=== PATIENT | female | born 1975 | race Caucasian/White ===

== ENCOUNTER 2018-08-20 22:28 | Emergency (ER) | payer BC ==
[~2018-08-20] VITALS: Ht 152.4 cm; Wt 74.0 kg
[2018-08-20] MEDS ORDERED: ketorolac tromethamine 15mg/ml inj. IM ONE (23:05)
[2018-08-20 23:23] VITALS: BP 151/79
== END 2018-08-20 23:26 | disposition home or self-care (01) ==
LOC: ER 22:30
DX: M25.512 Pain in left shoulder (principal); Z88.0 Allergy status to penicillin; Z88.1 Allergy status to other antibiotic agents
CPT/HCPCS: 96372; 99283; J1885

== ENCOUNTER 2018-09-24 22:34 | Emergency (ER) | payer OTHER ==
[2018-09-24 22:47] VITALS: BP 162/96
[2018-09-24] MEDS ORDERED: DOXY100C43 PO (23:04)
== END 2018-09-24 23:18 | disposition home or self-care (01) ==
LOC: ER 22:35
DX: J32.1 Chronic frontal sinusitis (principal); J32.2 Chronic ethmoidal sinusitis; M19.90 Unspecified osteoarthritis, unspecified site; Z79.899 Other long term (current) drug therapy
CPT/HCPCS: 99283

== ENCOUNTER 2018-10-31 06:21 | Emergency (ER) | payer OTHER ==
[~2018-10-31] VITALS: Ht 152.4 cm; Wt 74.0 kg
[2018-10-31 06:57] LABS: BASOPHILS # (AUTO) 0.1 X10'3 (0-0.2); BASOPHILS % (AUTO) 0.6 % (0-1); EOSINOPHILS # (AUTO) 0.2 X10'3 (0-0.9); EOSINOPHILS % (AUTO) 1.5 % (0-6); HEMATOCRIT 39.1 % (35.0-45.0); HEMOGLOBIN 13.4 g/dl (12.0-16.0); LYMPHOCYTES # (AUTO) 1.2 X10'3 (1.1-4.8); LYMPHOCYTES % (AUTO) 8.3 % (21-51); MEAN CORPUSCULAR HEMOGLOBIN 30.3 PG (27.0-31.0); MEAN CORPUSCULAR HGB CONC 34.4 % (33.0-36.5); MEAN CORPUSCULAR VOLUME 88.3 FL (78-98); MEAN PLATELET VOLUME 7.8 FL (7.4-10.4); MONOCYTES # (AUTO) 0.3 X10'3 (0-0.9); MONOCYTES % (AUTO) 2.3 % (2-12); NEUTROPHILS # (AUTO) 13.1 X10'3 (1.8-7.7); NEUTROPHILS % (AUTO) 87.3 % (42-75); PLATELET COUNT 348 X10'3 (140-440); RED BLOOD COUNT 4.43 X10'6 (4.20-5.60); RED CELL DISTRIBUTION WIDTH 13.1 % (11.5-14.5)
[2018-10-31 07:12] LABS: ALANINE AMINOTRANSFERASE 25 U/L (12-78); ALBUMIN 3.7 G/DL (3.4-5.0); ALBUMIN/GLOBULIN RATIO 0.9 (1.1-1.5); ALKALINE PHOSPHATASE 79 IU/L (46-116); ANION GAP 12 (8-16); ASPARTATE AMINO TRANSFERASE 17 U/L (10-37); BILIRUBIN,TOTAL 0.2 MG/DL (0.1-1.0); BLOOD UREA NITROGEN 18 MG/DL (7-18); BUN/CREATININE RATIO 16.2 (6.6-38.0); CALCIUM 8.8 MG/DL (8.5-10.1); CHLORIDE 102 MMOL/L (99-107); CREATININE 1.11 MG/DL (0.40-0.90); GLUCOSE 170 MG/DL (70-104); LIPASE 121 U/L (73-393); POTASSIUM 3.4 MMOL/L (3.5-5.1); SODIUM 138 MMOL/L (135-145); TOTAL CARBON DIOXIDE 24.4 MMOL/L (24-32); TOTAL PROTEIN 7.6 G/DL (6.4-8.2); eGFR 54 ML/MIN
[2018-10-31] MEDS ORDERED: normal saline 1000ML IV soln IVB ONE (07:35)
[2018-10-31] MEDS ORDERED: ondansetron/PF 4mg/2ml inj IV ONE (07:35)
[2018-10-31] MEDS: morphine 4 MG/ML inj SYRINge IV PRN ×2 (08:07→17:13)
[2018-10-31 09:35] LABS: CLARITY,URINE CLEAR (Clear); COLOR,URINE YELLOW (Yellow); GLUCOSE, URINE NEGATIVE (Neg); KETONES,URINE NEGATIVE (Neg); LEUKOCYTE ESTERASE ,URINE NEGATIVE (Neg); NITRITES, URINE NEGATIVE (Neg); OCCULT BLOOD,URINE LARGE (Neg); PROTEIN,URINE NEGATIVE (Neg); UA COLLECTION TYPE CLN CATCH MIDSTREAM; UROBILINOGEN,URINE 0.2 E.U/dL (0.2-1.0)
[2018-10-31 09:36] LABS: URINE HCG NEGATIVE (NEG)
[2018-10-31 09:42] LABS: BACTERIA,URINE NONE SEEN /HPF (Neg); MUCUS STRANDS NONE SEEN /LPF (Neg); RBC,URINE 20-50 /HPF (0-2); SQUAMOUS EPITHELIAL CELL,UR MANY /LPF (FEW); WBC,URINE 0-4 /HPF (0-4)
[2018-10-31] MEDS ORDERED: morphine 4 MG/ML inj SYRINge IV ONE (10:40)
[2018-10-31] MEDS ORDERED: ONDA4TAB6 PO (16:59)
[2018-10-31] MEDS ORDERED: HYDR-3965 PO (16:59)
[2018-10-31] MEDS ORDERED: hydrALAZINE 20mg/ml inj. IV PRN (18:00)
[2018-10-31] MEDS ORDERED: morphine 4 MG/ML inj SYRINge IV PRN ×2 (18:00)
[2018-10-31] MEDS ORDERED: fentaNYL/PF 50MCG/1 ML 2ML syringe IV PRN ×2 (18:00)
[2018-10-31] MEDS ORDERED: ondansetron/PF 4mg/2ml inj IV PRN (18:00)
[2018-10-31] MEDS ORDERED: ringers solution, lacted 1,000 ML IV SCH (18:00)
[2018-10-31] MEDS ORDERED: labetalol 20mg/4ml (5mg/ml) syringe IV PRN (18:00)
[2018-10-31] MEDS ORDERED: iohexol 300 MG/1 ML 50ml polymer ONE (18:08)
[2018-10-31] MEDS ORDERED: fentaNYL/PF 50MCG/1 ML 2ML syringe ONE (18:35)
[2018-10-31] MEDS ORDERED: midazolam 2 mg/2 ml injection ONE (18:36)
[2018-10-31] MEDS ORDERED: ondansetron/PF 4mg/2ml inj ONE (18:36)
[2018-10-31] MEDS ORDERED: LIDOcaine 2% (20mg/ml) 5ml vial ONE (18:36)
[2018-10-31] MEDS ORDERED: propofol inj 20 ML IV ONE (18:36)
[2018-10-31] MEDS ORDERED: ceFAZolin 1000mg inj ONE ×2 (18:42)
[2018-10-31] MEDS ORDERED: dexamethasone sod phosphate 4mg/ml inj. ONE (18:43)
[2018-10-31 19:04] VITALS: BP 120/88
--- NOTE | 2018-10-31 19:04 | NUR ---
Received from OR via , accompanied by Anesthesiologist DR SWARTZ and report given by Anesthesiolgist. AWAKENS TO VOICE. VITALS STABLE. MATEUSZ PAIN. ABD SOFT.
[2018-10-31 19:14] VITALS: BP 111/67
[2018-10-31 19:24] VITALS: BP 114/64
[2018-10-31 19:34] VITALS: BP 124/86
[2018-10-31 19:44] VITALS: BP 128/76
[2018-10-31 19:54] VITALS: BP 132/84
--- NOTE | 2018-10-31 20:04 | NUR ---
AWAKE AND ORIENTED. VITALS STABLE. MATEUSZ PAIN. HOME WITH HER SPOUSE AT THIS TIME.
[2018-11-01] MEDS ORDERED: HYDR-3965 PO (08:10)
[2018-11-01] MEDS ORDERED: ONDA4TAB6 PO ×3 (08:10→08:37)
[2018-11-01] MEDS ORDERED: HYDR-4353 PO (08:32)
[2018-11-01] MEDS ORDERED: OXYC-150 PO (08:37)
== END 2018-10-31 20:04 | disposition home or self-care (01) ==
LOC: ER 06:22 → EEVIPCON 06:22 → ER 20:04
DX: N13.2 Hydronephrosis with renal and ureteral calculous obstruction (principal); K59.00 Constipation, unspecified; M19.90 Unspecified osteoarthritis, unspecified site; Z90.710 Acquired absence of both cervix and uterus; Z98.890 Other specified postprocedural states
CPT/HCPCS: 36415; 52005; 74018; 74176; 76000; 80053; 81001; 81025; 83690; 85025; 85610; 96374; 96375; 96376; 99284; C1758; C2617; J0690; J1100; J2001; J2250; J2270; J2405; J2704; J3010; J7030; Q9967; A4402; J7120

== ENCOUNTER 2018-11-18 07:45 | Emergency (ER) | payer OTHER ==
[2018-11-18] VITALS (8 sets, daily range): BP systolic 114–127; BP diastolic 66–81
[~2018-11-18] VITALS: Ht 152.4 cm; Wt 72.7 kg
[~2018-11-18 07:45] MED LIST: ONDA4TAB6 PO; OXYC-150 PO
[2018-11-18] MEDS ORDERED: normal saline 1000ML IV soln IVB ONE (08:00)
[2018-11-18] MEDS ORDERED: ketorolac trometh. 30mg/ml inj. IV ONE (08:00)
[2018-11-18] MEDS ORDERED: ondansetron/PF 4mg/2ml inj IV ONE (08:00)
[2018-11-18 08:34] LABS: BASOPHILS # (AUTO) 0.1 X10'3 (0-0.2); BASOPHILS % (AUTO) 1.3 % (0-1); EOSINOPHILS # (AUTO) 0.3 X10'3 (0-0.9); EOSINOPHILS % (AUTO) 3.5 % (0-6); HEMATOCRIT 36.9 % (35.0-45.0); HEMOGLOBIN 12.7 g/dl (12.0-16.0); LYMPHOCYTES # (AUTO) 2.9 X10'3 (1.1-4.8); LYMPHOCYTES % (AUTO) 38.8 % (21-51); MEAN CORPUSCULAR HEMOGLOBIN 30.2 PG (27.0-31.0); MEAN CORPUSCULAR HGB CONC 34.3 g/dL (33.0-36.5); MEAN CORPUSCULAR VOLUME 88.1 FL (78-98); MEAN PLATELET VOLUME 7.6 FL (7.4-10.4); MONOCYTES # (AUTO) 0.5 X10'3 (0-0.9); MONOCYTES % (AUTO) 6.6 % (2-12); NEUTROPHILS # (AUTO) 3.7 X10'3 (1.8-7.7); NEUTROPHILS % (AUTO) 49.8 % (42-75); PLATELET COUNT 312 X10'3 (140-440); RED BLOOD COUNT 4.19 X10'6 (4.20-5.60); RED CELL DISTRIBUTION WIDTH 13.3 % (11.5-14.5); WHITE BLOOD COUNT 7.4 X10'3 (4.5-11.0)
[2018-11-18] MEDS: morphine 4 MG/ML inj SYRINge IV PRN ×2 (08:34→12:52)
[2018-11-18 08:43] LABS: URINE HCG NEGATIVE (NEG)
[2018-11-18 08:47] LABS: ALANINE AMINOTRANSFERASE 20 U/L (12-78); ALBUMIN 3.5 G/DL (3.4-5.0); ALKALINE PHOSPHATASE 54 IU/L (46-116); ANION GAP 10 (8-16); ASPARTATE AMINO TRANSFERASE 17 U/L (10-37); BILIRUBIN,TOTAL 0.6 MG/DL (0.1-1.0); BLOOD UREA NITROGEN 8 MG/DL (7-18); CALCIUM 8.9 MG/DL (8.5-10.1); CHLORIDE 102 MMOL/L (99-107); GLUCOSE 98 MG/DL (70-104); LIPASE 88 U/L (73-393); POTASSIUM 3.4 MMOL/L (3.5-5.1); SODIUM 141 MMOL/L (135-145); TOTAL CARBON DIOXIDE 28.7 MMOL/L (24-32); TOTAL PROTEIN 7.1 G/DL (6.4-8.2); eGFR 78 ML/MIN
[2018-11-18 08:48] LABS: CLARITY,URINE SLIGHTLY CLOUDY (Clear); COLOR,URINE YELLOW (Yellow); GLUCOSE, URINE NEGATIVE (Neg); KETONES,URINE NEGATIVE (Neg); LEUKOCYTE ESTERASE ,URINE SMALL (Neg); NITRITES, URINE POSITIVE (Neg); OCCULT BLOOD,URINE LARGE (Neg); PH,URINE 5.5 (4.8-8.0); PROTEIN,URINE 30 mg/dl (Neg); UROBILINOGEN,URINE 0.2 E.U/dL (0.2-1.0)
[2018-11-18 08:55] LABS: UA COLLECTION TYPE CLN CATCH MIDSTREAM
[2018-11-18 08:57] LABS: MUCUS STRANDS FEW /LPF (Neg); SQUAMOUS EPITHELIAL CELL,UR MANY /LPF (FEW)
[2018-11-18 08:58] LABS: BACTERIA,URINE 1+ /HPF (Neg); RBC,URINE 50-100 /HPF (0-2)
[2018-11-18] MEDS ORDERED: normal saline 1000ml 1,000 ML IV ONE (09:25)
[2018-11-18] MEDS ORDERED: morphine 4 MG/ML inj SYRINge IV PRN ×3 (09:25→14:50)
[2018-11-18] MEDS ORDERED: ondansetron/PF 4mg/2ml inj IV PRN ×2 (09:25→14:50)
[2018-11-18] MEDS ORDERED: CETI-102 PO (11:05)
[2018-11-18] MEDS ORDERED: famotidine 20mg tablet PO ONE (11:39)
[2018-11-18] MEDS ORDERED: ringers solution, lacted 1,000 ML IV SCH ×2 (11:39→14:47)
[2018-11-18] MEDS ORDERED: NO HOME MEDS (13:42)
[2018-11-18] MEDS ORDERED: iohexol 300 MG/1 ML 50ml polymer ONE (14:49)
[2018-11-18] MEDS ORDERED: fentaNYL/PF 50MCG/1 ML 2ML syringe IV PRN ×2 (14:50)
[2018-11-18] MEDS ORDERED: hydrALAZINE 20mg/ml inj. IV PRN (14:50)
[2018-11-18] MEDS ORDERED: labetalol 20mg/4ml (5mg/ml) syringe IV PRN (14:50)
[2018-11-18] MEDS ORDERED: meperidine/PF 50mg/ml syringe ONE (15:14)
[2018-11-18] MEDS ORDERED: LIDOcaine 2% (20mg/ml) 5ml vial ONE (15:15)
[2018-11-18] MEDS ORDERED: propofol inj 20 ML IV ONE (15:15)
[2018-11-18] MEDS ORDERED: ondansetron/PF 4mg/2ml inj ONE (15:15)
[2018-11-18] MEDS ORDERED: sevoflurane 250ml liquid IH ONE (15:18)
[2018-11-18] MEDS ORDERED: dexamethasone sod phosphate 10mg/ml inj ONE (15:18)
[2018-11-18] MEDS ORDERED: ceFAZolin 1000mg inj ONE (15:36)
--- NOTE | 2018-11-18 16:30 | NUR ---
Received from OR via , accompanied by Anesthesiologist YULIANA and report given by Anesthesiolgist. PATIENT VSS CHARTED, RESPIRATIONS EQUAL, LUNG SOUNDS CLEAR. STENTS IN PLACE TO PUBIC BONE. WILL CONTINUE TO MONITOR.
--- NOTE | 2018-11-18 17:25 | NUR ---
PATIENT VOIDED, CLEAR WITH NO CLOTS NOTED.
--- NOTE | 2018-11-18 17:30 | NUR ---
PATIENT DISCHARGE INSTRUCTIONS GIVEN, PATIENT VERBALIZED UNDERSTANDING. PIV DC;D, CATH TIP INTACT. PATIENT TO PERSONAL VEHCILE WITH ALL PERSONAL BELONGINGS.
== END 2018-11-18 17:30 | disposition home or self-care (01) ==
LOC: EEVIPCON 07:46 → ER 07:46
DX: N20.0 Calculus of kidney (principal); M19.90 Unspecified osteoarthritis, unspecified site; Z90.710 Acquired absence of both cervix and uterus; Z88.0 Allergy status to penicillin; Z88.1 Allergy status to other antibiotic agents; Z79.899 Other long term (current) drug therapy
CPT/HCPCS: 36415; 52000; 74018; 76000; 80053; 81001; 81025; 83690; 85025; 96374; 96375; 96376; 99285; C2617; J0690; J1100; J1885; J2001; J2175; J2270; J2405; J2704; J7030; Q9967; A4402; A7000; C1769; J7120

== ENCOUNTER → 2018-12-05 | Outpatient (CLI) | payer OTHER ==
[~2018-12-05] MED LIST changes: +NO HOME MEDS; -ONDA4TAB6 PO; -OXYC-150 PO
[2018-12-05 13:20] LABS: BASOPHILS # (AUTO) 0.1 X10'3 (0-0.2); BASOPHILS % (AUTO) 1.4 % (0-1); EOSINOPHILS # (AUTO) 0.1 X10'3 (0-0.9); EOSINOPHILS % (AUTO) 1.3 % (0-6); HEMOGLOBIN 12.6 g/dl (12.0-16.0); LYMPHOCYTES # (AUTO) 2.3 X10'3 (1.1-4.8); LYMPHOCYTES % (AUTO) 40.3 % (21-51); MEAN CORPUSCULAR HEMOGLOBIN 29.9 PG (27.0-31.0); MEAN CORPUSCULAR HGB CONC 33.9 g/dL (33.0-36.5); MEAN CORPUSCULAR VOLUME 88.1 FL (78-98); MEAN PLATELET VOLUME 7.9 FL (7.4-10.4); MONOCYTES # (AUTO) 0.3 X10'3 (0-0.9); MONOCYTES % (AUTO) 5.9 % (2-12); NEUTROPHILS # (AUTO) 2.9 X10'3 (1.8-7.7); NEUTROPHILS % (AUTO) 51.1 % (42-75); PLATELET COUNT 338 X10'3 (140-440); RED CELL DISTRIBUTION WIDTH 13.7 % (11.5-14.5); WHITE BLOOD COUNT 5.7 X10'3 (4.5-11.0)
[2018-12-05 13:47] LABS: HEMOGLOBIN A1C 5.5 % (4.5-6.2)
[2018-12-05 13:56] LABS: ALANINE AMINOTRANSFERASE 21 U/L (12-78); ALBUMIN 3.6 G/DL (3.4-5.0); ALBUMIN/GLOBULIN RATIO 1.1 (1.1-1.5); ALKALINE PHOSPHATASE 63 IU/L (46-116); ANION GAP 5 (8-16); ASPARTATE AMINO TRANSFERASE 15 U/L (10-37); BILIRUBIN,TOTAL 0.4 MG/DL (0.1-1.0); CHLORIDE 105 MMOL/L (99-107); CHOL/HDL RATIO 3.3 (0.00-4.99); CHOLESTEROL 149 MG/DL (0-200); CREATININE 0.84 MG/DL (0.40-0.90); GLUCOSE 92 MG/DL (70-104); HDL CHOLESTEROL 45 MG/DL (35-60); LDL CHOLESTEROL 94 MG/DL (50-100); SODIUM 138 MMOL/L (135-145); TOTAL CARBON DIOXIDE 28.4 MMOL/L (24-32); TRIGLYCERIDES 110 MG/DL (20-135); eGFR 74 ML/MIN
[2018-12-05 14:08] LABS: BLOOD UREA NITROGEN 12 MG/DL (7-18); BUN/CREATININE RATIO 14.3 (6.6-38.0)
[2018-12-05 16:06] LABS: PHOSPHORUS 3.2 MG/DL (2.3-4.5)
== END | disposition home or self-care (01) ==
LOC: LAB 12:20
PROVIDERS: ATTEND Family Medicine
DX: Z12.31 Encounter for screening mammogram for malignant neoplasm of breast (principal); N20.0 Calculus of kidney; Z76.89 Persons encountering health services in other specified circumstances
CPT/HCPCS: 36415; 80053; 80061; 83036; 83735; 84100; 84436; 84443; 85025

== ENCOUNTER 2018-12-15 15:09 | Outpatient (CLI) | payer OTHER ==
[2018-12-15 16:17] LABS: ALANINE AMINOTRANSFERASE 18 U/L (12-78); ALBUMIN 3.5 G/DL (3.4-5.0); ALKALINE PHOSPHATASE 67 IU/L (46-116); ANION GAP 7 (8-16); ASPARTATE AMINO TRANSFERASE 14 U/L (10-37); BILIRUBIN,TOTAL 0.3 MG/DL (0.1-1.0); BLOOD UREA NITROGEN 9 MG/DL (7-18); BUN/CREATININE RATIO 12.3 (6.6-38.0); CALCIUM 9.3 MG/DL (8.5-10.1); CHLORIDE 105 MMOL/L (99-107); CREATININE 0.73 MG/DL (0.40-0.90); GLUCOSE 91 MG/DL (70-104); POTASSIUM 3.3 MMOL/L (3.5-5.1); SODIUM 140 MMOL/L (135-145); TOTAL CARBON DIOXIDE 28.2 MMOL/L (24-32); TOTAL PROTEIN 7.1 G/DL (6.4-8.2); eGFR 87 ML/MIN
== END 2018-12-15 23:59 | disposition home or self-care (01) ==
LOC: LAB 15:09
PROVIDERS: ATTEND Family Medicine
DX: K52.9 Noninfective gastroenteritis and colitis, unspecified (principal); E87.6 Hypokalemia; Z88.0 Allergy status to penicillin; Z88.1 Allergy status to other antibiotic agents
CPT/HCPCS: 80053

== ENCOUNTER 2019-03-18 23:34 | Emergency (ER) | payer OTHER ==
[~2019-03-18] VITALS: Ht 152.4 cm; Wt 72.7 kg
[2019-03-18 23:39] VITALS: BP 136/82
[2019-03-19] MEDS ORDERED: ibuprofen tablet 400 MG TABLET PO ONE (00:35)
== END 2019-03-19 01:15 | disposition home or self-care (01) ==
LOC: ER 23:35
DX: J06.9 Acute upper respiratory infection, unspecified (principal); M19.90 Unspecified osteoarthritis, unspecified site; Z90.49 Acquired absence of other specified parts of digestive tract; Z90.710 Acquired absence of both cervix and uterus; Z98.890 Other specified postprocedural states; Z88.0 Allergy status to penicillin; Z88.1 Allergy status to other antibiotic agents
CPT/HCPCS: 99282

== ENCOUNTER 2019-05-21 17:19 | Emergency (ER) | payer OTHER ==
[~2019-05-21] VITALS: Ht 152.4 cm; Wt 72.0 kg
[~2019-05-21 17:19] MED LIST changes: +CETI10CA PO; -NO HOME MEDS
--- NOTE | 2019-05-21 17:33 | NUR ---
SPOKE WITH PROVIDER JEEVAN HUSSEIN AND UPDATED PROVIDER ON PT REPORT OF [facility] REPORTS SWEATING, UNILATERAL HEAD PAIN AND TEARING OF EYES. PT PLACED ON 5L O2 VIA NC PER PA INSTRUCTION.
[2019-05-21] MEDS ORDERED: proCHLORperazine 10 MG/2 ml inj IV ONE (18:10)
[2019-05-21] MEDS ORDERED: dexamethasone sod phosphate 10mg/ml inj IV STA (18:10)
[2019-05-21] MEDS ORDERED: diphenhydrAMINE 50 mg/ml inj IV ONE (18:10)
[2019-05-21] MEDS ORDERED: normal saline 1000ML IV soln IVB ONE (18:10)
[2019-05-21] MEDS ORDERED: ketorolac tromethamine 15mg/ml inj. IV ONE (18:10)
[2019-05-21 19:00] VITALS: BP 141/86
== END 2019-05-21 19:31 | disposition home or self-care (01) ==
LOC: ER 17:19
DX: G43.909 Migraine, unspecified, not intractable, without status migrainosus (principal); M19.90 Unspecified osteoarthritis, unspecified site; Z90.49 Acquired absence of other specified parts of digestive tract; Z90.710 Acquired absence of both cervix and uterus; Z98.890 Other specified postprocedural states; Z88.0 Allergy status to penicillin; Z88.1 Allergy status to other antibiotic agents; Z79.899 Other long term (current) drug therapy
CPT/HCPCS: 96374; 96375; 99283; J0780; J1100; J1200; J1885; J7030

== ENCOUNTER 2019-08-02 23:26 | Emergency (ER) | payer OTHER ==
[~2019-08-02] VITALS: Ht 152.4 cm; Wt 72.7 kg
[2019-08-02] MEDS ORDERED: ALBU8.5H8 INH (23:41)
[2019-08-02] MEDS ORDERED: BENZ-16 PO (23:41)
[2019-08-03 00:10] VITALS: BP 152/92
== END 2019-08-03 00:13 | disposition home or self-care (01) ==
LOC: ER 23:28
DX: J20.9 Acute bronchitis, unspecified (principal); G43.909 Migraine, unspecified, not intractable, without status migrainosus; M19.90 Unspecified osteoarthritis, unspecified site; Z90.49 Acquired absence of other specified parts of digestive tract; Z90.710 Acquired absence of both cervix and uterus; Z98.890 Other specified postprocedural states; Z88.0 Allergy status to penicillin; Z88.1 Allergy status to other antibiotic agents; Z79.899 Other long term (current) drug therapy
CPT/HCPCS: 71045; 99283

== ENCOUNTER 2019-09-09 14:40 | Emergency (ER) | payer OTHER ==
[~2019-09-09] VITALS: Ht 152.4 cm; Wt 72.7 kg
[~2019-09-09 14:40] MED LIST changes: +ALBU8.5H8 INH
[2019-09-09 14:42] VITALS: BP 138/92
[2019-09-09] MEDS ORDERED: clindamycin 150mg capsule PO ONE (15:15)
[2019-09-09] MEDS ORDERED: CLIN150C2 PO (15:17)
[2019-09-09] MEDS ORDERED: L. R1CAP4 PO (15:18)
== END 2019-09-09 15:32 | disposition home or self-care (01) ==
LOC: ER 14:40
DX: J32.9 Chronic sinusitis, unspecified (principal); G43.909 Migraine, unspecified, not intractable, without status migrainosus; M19.90 Unspecified osteoarthritis, unspecified site; Z90.49 Acquired absence of other specified parts of digestive tract; Z90.710 Acquired absence of both cervix and uterus; Z98.890 Other specified postprocedural states; Z88.0 Allergy status to penicillin; Z88.1 Allergy status to other antibiotic agents; Z79.899 Other long term (current) drug therapy
CPT/HCPCS: 99283

== ENCOUNTER 2019-09-18 17:08 | Emergency (ER) | payer OTHER ==
[~2019-09-18] VITALS: Ht 152.4 cm; Wt 76.0 kg
[~2019-09-18 17:08] MED LIST changes: +L. R1CAP4 PO
[2019-09-18 17:10] VITALS: BP 144/89
[2019-09-18] MEDS ORDERED: ipratropium/albuterol 3ml nebule NEB ONE (18:25)
[2019-09-18] MEDS ORDERED: BENZ-16 PO (18:37)
[2019-09-18] MEDS ORDERED: ATRNS (18:37)
== END 2019-09-18 18:51 | disposition home or self-care (01) ==
LOC: ER 17:08
DX: J20.9 Acute bronchitis, unspecified (principal); M19.90 Unspecified osteoarthritis, unspecified site; Z90.49 Acquired absence of other specified parts of digestive tract; Z90.710 Acquired absence of both cervix and uterus; Z98.890 Other specified postprocedural states; Z88.0 Allergy status to penicillin; Z88.1 Allergy status to other antibiotic agents; Z79.899 Other long term (current) drug therapy
CPT/HCPCS: 94640; 94760; 99283

== ENCOUNTER 2019-11-15 23:25 | Emergency (ER) | payer OTHER ==
[~2019-11-15] VITALS: Ht 152.4 cm; Wt 72.7 kg
[~2019-11-15 23:25] MED LIST changes: +ATRNS
[2019-11-16] MEDS ORDERED: CLOT15CR73 TP (00:19)
[2019-11-16 00:57] VITALS: BP 145/85
== END 2019-11-16 00:58 | disposition home or self-care (01) ==
LOC: ER 23:26
DX: B35.8 Other dermatophytoses (principal); G43.909 Migraine, unspecified, not intractable, without status migrainosus; M19.90 Unspecified osteoarthritis, unspecified site; Z90.49 Acquired absence of other specified parts of digestive tract; Z90.710 Acquired absence of both cervix and uterus; Z88.0 Allergy status to penicillin; Z88.1 Allergy status to other antibiotic agents
CPT/HCPCS: 99283

== ENCOUNTER 2020-02-10 23:24 | Emergency (ER) | payer OTHER ==
[~2020-02-10] VITALS: Ht 152.4 cm; Wt 72.7 kg
[~2020-02-10 23:24] MED LIST changes: +CLOT15CR73 TP
[2020-02-10 23:29] VITALS: BP 158/96
[2020-02-10] MEDS ORDERED: CEPH250T PO (23:36)
== END 2020-02-10 23:46 | disposition home or self-care (01) ==
LOC: ER 23:24
DX: L60.0 Ingrowing nail (principal); L08.89 Other specified local infections of the skin and subcutaneous tissue; G43.909 Migraine, unspecified, not intractable, without status migrainosus; M19.90 Unspecified osteoarthritis, unspecified site; Z90.49 Acquired absence of other specified parts of digestive tract; Z90.710 Acquired absence of both cervix and uterus; Z98.890 Other specified postprocedural states; Z88.0 Allergy status to penicillin; Z79.2 Long term (current) use of antibiotics; Z79.4 Long term (current) use of insulin; Z79.899 Other long term (current) drug therapy
CPT/HCPCS: 99283

== ENCOUNTER 2020-02-13 22:33 | Emergency (ER) | payer OTHER ==
[~2020-02-13] VITALS: Ht 165.1 cm; Wt 75.0 kg
[~2020-02-13 22:33] MED LIST changes: +CEPH250T PO
[2020-02-13 22:49] VITALS: BP 150/103
[2020-02-13] MEDS ORDERED: CLIN150C8 PO (22:53)
[2020-02-13] MEDS ORDERED: clindamycin 150mg capsule PO ONE (22:55)
== END 2020-02-13 23:09 | disposition home or self-care (01) ==
LOC: ER 22:34
DX: L29.9 Pruritus, unspecified (principal); T36.1X5A Adverse effect of cephalosporins and other beta-lactam antibiotics, initial encounter; R51 Headache; M19.90 Unspecified osteoarthritis, unspecified site; Z90.49 Acquired absence of other specified parts of digestive tract; Z90.710 Acquired absence of both cervix and uterus; Z88.1 Allergy status to other antibiotic agents; Z88.0 Allergy status to penicillin; Z79.2 Long term (current) use of antibiotics; Z79.899 Other long term (current) drug therapy; Y92.9 Unspecified place or not applicable
CPT/HCPCS: 99283

== ENCOUNTER 2020-06-13 21:29 | Emergency (ER) | payer OTHER ==
[~2020-06-13] VITALS: Ht 172.7 cm; Wt 72.7 kg
[~2020-06-13 21:29] MED LIST changes: -CEPH250T PO; +CLIN150C8 PO
[2020-06-13 21:33] VITALS: BP 168/90
[2020-06-13] MEDS ORDERED: LIDOcaine 1% W/epiNEPHrine 1:200,000 10ml vial IJ ONE (22:15)
[2020-06-13] MEDS ORDERED: DOXYCYCLINE 100MG CAPSULE PO STA (23:10)
[2020-06-13] MEDS ORDERED: bacitracin 15gm ointment TP ONE (23:10)
== END 2020-06-13 23:38 | disposition home or self-care (01) ==
LOC: ER 21:30
DX: L60.0 Ingrowing nail (principal); G43.909 Migraine, unspecified, not intractable, without status migrainosus; M19.90 Unspecified osteoarthritis, unspecified site; Z90.49 Acquired absence of other specified parts of digestive tract; Z90.710 Acquired absence of both cervix and uterus; Z98.890 Other specified postprocedural states; Z88.0 Allergy status to penicillin; Z88.1 Allergy status to other antibiotic agents; Z79.899 Other long term (current) drug therapy
CPT/HCPCS: 11730; 99284

== ENCOUNTER 2020-06-15 14:52 | Outpatient (CLI) | payer OTHER | END 2020-06-15 23:59 | disposition home or self-care (01) | LOC: 64 CT 14:52 | PROVIDERS: ATTEND Family Medicine | DX: D17.1 Benign lipomatous neoplasm of skin and subcutaneous tissue of trunk (principal) | CPT/HCPCS: 72128; 72131 ==

== ENCOUNTER 2020-07-27 05:11 | Day surgery (SDC) | payer BC ==
[2020-07-20 10:24] LABS: BASOPHILS % (AUTO) 0.2 % (0-1); EOSINOPHILS # (AUTO) 0.2 X10'3 (0-0.9); EOSINOPHILS % (AUTO) 2.3 % (0-6); LYMPHOCYTES # (AUTO) 2.6 X10'3 (1.1-4.8); LYMPHOCYTES % (AUTO) 31.3 % (21-51); MEAN CORPUSCULAR HEMOGLOBIN 29.9 PG (27.0-31.0); MEAN CORPUSCULAR HGB CONC 33.6 g/dL (33.0-36.5); MONOCYTES # (AUTO) 0.5 X10'3 (0-0.9); MONOCYTES % (AUTO) 6.3 % (2-12); NEUTROPHILS % (AUTO) 59.9 % (42-75); PRE OP HEMATOCRIT 37.9 % (35.0-45.0); PRE OP HEMOGLOBIN 12.7 g/dL (12.0-16.0); PRE OP PLATELET COUNT 327 X10'3 (140-440); RED BLOOD COUNT 4.26 X10'6 (4.20-5.60); RED CELL DISTRIBUTION WIDTH 13.9 % (11.5-14.5)
[2020-07-20 10:39] LABS: ALBUMIN 3.5 G/DL (3.4-5.0); ALBUMIN/GLOBULIN RATIO 0.9 (1.1-1.5); ALKALINE PHOSPHATASE 77 IU/L (46-116); BLOOD UREA NITROGEN 9 MG/DL (7-18); BUN/CREATININE RATIO 10.5 (6.6-38.0); CHLORIDE 101 MMOL/L (99-107); CREATININE 0.86 MG/DL (0.40-0.90); PRE OP ALT 33 U/L (30-65); PRE OP ANION GAP 7 (8-16); PRE OP AST 26 U/L (10-37); PRE OP BILIRUB, TOTAL 0.4 MG/DL (0.0-1.0); PRE OP GLUCOSE 106 MG/DL (70-104); PRE OP SODIUM 141 MMOL/L (135-145); TOTAL CARBON DIOXIDE 32.6 MMOL/L (24-32); TOTAL PROTEIN 7.3 G/DL (6.4-8.2); eGFR 71 ML/MIN
[2020-07-20 10:42] LABS: PRE OP POTASSIUM 3.1 MMOL/L (3.4-5.1)
[2020-07-27] VITALS (9 sets, daily range): BP systolic 144–162; BP diastolic 85–101
[~2020-07-27] VITALS: Ht 152.4 cm; Wt 77.1 kg
[~2020-07-27 05:11] MED LIST changes: -ALBU8.5H8 INH; -ATRNS; -CLIN150C8 PO; -CLOT15CR73 TP; +DULO30CA52 PO; +IBUP-24 PO; -L. R1CAP4 PO; +TRAM50TA2 PO; +ringers solution, lacted 1,000 ML IV SCH
[2020-07-27] MEDS ORDERED: famotidine 10mg tablet PO ONE (05:30)
[2020-07-27] MEDS ORDERED: CLINDAmcin 900mg/NS 50ml IVPB 50 ML IV ONE (06:00)
[2020-07-27] MEDS ORDERED: midazolam 2 mg/2 ml injection ONE (09:07)
[2020-07-27] MEDS ORDERED: fentaNYL/PF 50MCG/1 ML 2ML syringe ONE (09:07)
[2020-07-27] MEDS ORDERED: LIDOcaine 2% (20mg/ml) 5ml vial ONE (09:24)
[2020-07-27] MEDS ORDERED: propofol inj 20 ML IV ONE (09:24)
[2020-07-27] MEDS ORDERED: dexamethasone sod phosphate 4mg/ml inj. ONE (09:25)
[2020-07-27] MEDS ORDERED: ondansetron/PF 4mg/2ml inj ONE (09:25)
[2020-07-27] MEDS ORDERED: morphine 2 MG/ML inj. syringe IV PRN (09:35)
[2020-07-27] MEDS ORDERED: ringers solution, lacted 1,000 ML IV SCH (09:35)
[2020-07-27] MEDS ORDERED: meperidine/PF 25mg/ml syringe IV PRN (09:35)
[2020-07-27] MEDS ORDERED: HYDROmorphone inj. 0.5 MG/0.5 ML DISP.SYRIN IV PRN (09:35)
[2020-07-27] MEDS ORDERED: morphine 4 MG/ML inj SYRINge IV PRN (09:35)
[2020-07-27] MEDS ORDERED: hydrALAZINE 20mg/ml inj. IV PRN (09:35)
[2020-07-27] MEDS ORDERED: ondansetron/PF 4mg/2ml inj IV PRN (09:35)
[2020-07-27] MEDS ORDERED: proCHLORperazine 10 MG/2 ml inj IV PRN (09:35)
[2020-07-27] MEDS ORDERED: acetaminophen 1,000mg/100ml IV 100 ML IV PRN (09:35)
[2020-07-27] MEDS ORDERED: labetalol 20mg/4ml (5mg/ml) syringe IV PRN (09:35)
--- NOTE | 2020-07-27 10:02 | NUR ---
Received from OR via [facility], accompanied by Anesthesiologist Valentin and report given by Anesthesiolgist. VS stable, 20G left forearm with 100cc/hr, 3 surgical sites to back present with one island dressing, CDI at this time. Pt appears painful, able to answer questions, will medicate.
[2020-07-27] MEDS: HYDROmorphone inj. 0.5 MG/0.5 ML DISP.SYRIN IV PRN ×2 (10:09→10:37)
[2020-07-27] MEDS ORDERED: oxyCODONE/APAP 10/325mg tablet PO ONE (10:50)
--- NOTE | 2020-07-27 11:42 | NUR ---
I HAVE REVIEWED D/C INSTRUCTIONS WITH PATIENT AND FAMILY AND THEY HAVE VERBALIZED UNDERSTANDING. PATIENT D/C HOME WITH ALL BELONGINGS AND FAMILY GAVE TRANSPORT HOME. Pt already has script sent from MD office. IV discontinued. Pt verbalized understanding of all DC instructions. Pt states comfortable with going home.
[2020-07-27 15:06] LABS: ISTAT ANION GAP 11 (8-12); ISTAT BUN 9 mg/dL (6-19); ISTAT CL 102 mmol/L (99-107); ISTAT CREATININE 0.7 mg/dL (0.6-1.1); ISTAT GLUCOSE 110 mg/dL (70-104); ISTAT HGB 13.3 g/dl (12.0-16.0); ISTAT Hct 39 %PCV (35-48); ISTAT IONIZED CALCIUM 1.13 mmol/L (1.03-1.32); ISTAT K 3.9 mmol/L (3.5-5.1); ISTAT NA 136 mmol/L (135-145); ISTAT TOTAL CO2 23 mmol/L (24-32); ISTAT eGFR > 90 ML/MIN; POC BUN/CREATININE RATIO 12.9 (6.6-38.0)
== END 2020-07-27 11:42 | disposition home or self-care (01) ==
LOC: PAS 05:11
PROVIDERS: ATTEND Surgery
DX: R22.2 Localized swelling, mass and lump, trunk (principal); D17.1 Benign lipomatous neoplasm of skin and subcutaneous tissue of trunk; I10 Essential (primary) hypertension; E87.6 Hypokalemia; F41.9 Anxiety disorder, unspecified; F32.9 Major depressive disorder, single episode, unspecified; K90.9 Intestinal malabsorption, unspecified; E66.9 Obesity, unspecified; Z68.33 Body mass index [BMI] 33.0-33.9, adult; Z20.828 Contact with and (suspected) exposure to other viral communicable diseases; Z98.890 Other specified postprocedural states; Z87.442 Personal history of urinary calculi; Z86.32 Personal history of gestational diabetes; Z88.0 Allergy status to penicillin; Z90.710 Acquired absence of both cervix and uterus; Z88.1 Allergy status to other antibiotic agents; Z79.899 Other long term (current) drug therapy
CPT/HCPCS: 21933; 36415; 80047; 80053; 85025; 87635; J0131; J1100; J1170; J2001; J2250; J2270; J2405; J2704; J3010; J7120; A4618; A7000; J3490

== ENCOUNTER 2020-09-27 23:03 | Emergency (ER) | payer BC ==
[~2020-09-27] VITALS: Ht 152.4 cm; Wt 74.5 kg
[~2020-09-27 23:03] MED LIST changes: -ringers solution, lacted 1,000 ML IV SCH
[2020-09-27 23:37] VITALS: BP 205/107
[2020-09-27] MEDS ORDERED: SUMAtriptan succ. 6 MG/0.5ml vial SQ ONE (23:55)
[2020-09-27] MEDS ORDERED: ketorolac trometh. 30mg/ml inj. IM ONE (23:55)
== END 2020-09-28 01:00 | disposition home or self-care (01) ==
LOC: ER 23:04
DX: G43.909 Migraine, unspecified, not intractable, without status migrainosus (principal); M19.90 Unspecified osteoarthritis, unspecified site; Z90.49 Acquired absence of other specified parts of digestive tract; Z90.710 Acquired absence of both cervix and uterus; Z88.0 Allergy status to penicillin; Z88.1 Allergy status to other antibiotic agents; Z88.8 Allergy status to other drugs, medicaments and biological substances; Z79.899 Other long term (current) drug therapy
CPT/HCPCS: 96372; 99284; J1885; J3030

== ENCOUNTER 2020-10-17 16:27 | Emergency (ER) | payer BC ==
[~2020-10-17] VITALS: Ht 152.4 cm; Wt 76.8 kg
[2020-10-17] MEDS ORDERED: cloNIDine 0.1 mg tablet PO ONE (16:45)
[2020-10-17] MEDS ORDERED: acetaminophen 325mg tablet PO ONE (17:20)
[2020-10-17 17:27] LABS: BASOPHILS # (AUTO) 0.1 X10'3 (0-0.2); BASOPHILS % (AUTO) 0.8 % (0-1); EOSINOPHILS # (AUTO) 0.1 X10'3 (0-0.9); EOSINOPHILS % (AUTO) 1.1 % (0-6); HEMATOCRIT 39.1 % (35.0-45.0); HEMOGLOBIN 13.4 g/dl (12.0-16.0); LYMPHOCYTES # (AUTO) 2.3 X10'3 (1.1-4.8); MEAN CORPUSCULAR HEMOGLOBIN 30.7 PG (27.0-31.0); MEAN CORPUSCULAR HGB CONC 34.2 g/dL (33.0-36.5); MEAN CORPUSCULAR VOLUME 89.9 FL (78-98); MEAN PLATELET VOLUME 7.3 FL (7.4-10.4); MONOCYTES # (AUTO) 0.7 X10'3 (0-0.9); MONOCYTES % (AUTO) 6.5 % (2-12); NEUTROPHILS # (AUTO) 7.4 X10'3 (1.8-7.7); NEUTROPHILS % (AUTO) 69.6 % (42-75); PLATELET COUNT 350 X10'3 (140-440); RED BLOOD COUNT 4.35 X10'6 (4.20-5.60); RED CELL DISTRIBUTION WIDTH 14.2 % (11.5-14.5); WHITE BLOOD COUNT 10.6 X10'3 (4.5-11.0)
[2020-10-17 17:34] LABS: ALANINE AMINOTRANSFERASE 20 U/L (12-78); ALBUMIN 3.6 G/DL (3.4-5.0); ALBUMIN/GLOBULIN RATIO 0.9 (1.1-1.5); ALKALINE PHOSPHATASE 77 IU/L (46-116); ANION GAP 11 (8-16); ASPARTATE AMINO TRANSFERASE 16 U/L (10-37); BILIRUBIN,TOTAL 0.3 MG/DL (0.1-1.0); BLOOD UREA NITROGEN 8 MG/DL (7-18); BUN/CREATININE RATIO 10.8 (6.6-38.0); CALCIUM 8.9 MG/DL (8.5-10.1); CHLORIDE 103 MMOL/L (99-107); CREATININE 0.74 MG/DL (0.40-0.90); GLUCOSE 86 MG/DL (70-104); POTASSIUM 3.3 MMOL/L (3.5-5.1); SODIUM 141 MMOL/L (135-145); TOTAL CARBON DIOXIDE 27.5 MMOL/L (24-32); TOTAL PROTEIN 7.6 G/DL (6.4-8.2); eGFR 85 ML/MIN
[2020-10-17 17:36] VITALS: BP 153/102
[2020-10-17] MEDS ORDERED: potassium Cl 20 mEq SR tablet PO STA (17:39)
== END 2020-10-17 18:20 | disposition home or self-care (01) ==
LOC: EEVIPCON 16:28 → ER 16:28
DX: R51.9 Headache, unspecified (principal); E87.6 Hypokalemia; I10 Essential (primary) hypertension; M19.90 Unspecified osteoarthritis, unspecified site; Z90.49 Acquired absence of other specified parts of digestive tract; Z90.710 Acquired absence of both cervix and uterus; Z88.0 Allergy status to penicillin; Z88.1 Allergy status to other antibiotic agents; Z88.8 Allergy status to other drugs, medicaments and biological substances; Z79.899 Other long term (current) drug therapy
CPT/HCPCS: 36415; 71045; 80053; 85025; 93005; 99285

== ENCOUNTER 2020-11-29 22:32 | Emergency (ER) | payer BC ==
[~2020-11-29] VITALS: Ht 152.4 cm; Wt 77.3 kg
[2020-11-29 23:14] LABS: BASOPHILS # (AUTO) 0.1 X10'3 (0-0.2); BASOPHILS % (AUTO) 0.6 % (0-1); EOSINOPHILS % (AUTO) 0.1 % (0-6); HEMATOCRIT 35.6 % (35.0-45.0); HEMOGLOBIN 12.2 g/dl (12.0-16.0); LYMPHOCYTES # (AUTO) 1.6 X10'3 (1.1-4.8); LYMPHOCYTES % (AUTO) 13.2 % (21-51); MEAN CORPUSCULAR HEMOGLOBIN 30.3 PG (27.0-31.0); MEAN CORPUSCULAR HGB CONC 34.2 g/dL (33.0-36.5); MEAN CORPUSCULAR VOLUME 88.5 FL (78-98); MEAN PLATELET VOLUME 7.5 FL (7.4-10.4); MONOCYTES # (AUTO) 0.4 X10'3 (0-0.9); NEUTROPHILS # (AUTO) 10.3 X10'3 (1.8-7.7); NEUTROPHILS % (AUTO) 83.1 % (42-75); PLATELET COUNT 318 X10'3 (140-440); RED BLOOD COUNT 4.02 X10'6 (4.20-5.60); RED CELL DISTRIBUTION WIDTH 13.8 % (11.5-14.5); WHITE BLOOD COUNT 12.4 X10'3 (4.5-11.0)
[2020-11-29 23:27] LABS: ALANINE AMINOTRANSFERASE 27 U/L (12-78); ALBUMIN 3.6 G/DL (3.4-5.0); ALBUMIN/GLOBULIN RATIO 0.9 (1.1-1.5); ALKALINE PHOSPHATASE 78 IU/L (46-116); AMYLASE 40 U/L (25-115); ANION GAP 6 (8-16); ASPARTATE AMINO TRANSFERASE 14 U/L (10-37); BILIRUBIN,TOTAL 0.3 MG/DL (0.1-1.0); BLOOD UREA NITROGEN 12 MG/DL (7-18); BUN/CREATININE RATIO 13.6 (6.6-38.0); CALCIUM 9.6 MG/DL (8.5-10.1); CHLORIDE 98 MMOL/L (99-107); CREATININE 0.88 MG/DL (0.40-0.90); GLUCOSE 146 MG/DL (70-104); LIPASE 76 U/L (73-393); POTASSIUM 3.2 MMOL/L (3.5-5.1); SODIUM 134 MMOL/L (135-145); TOTAL CARBON DIOXIDE 29.8 MMOL/L (24-32); TOTAL PROTEIN 7.7 G/DL (6.4-8.2); eGFR 69 ML/MIN
[2020-11-30] MEDS ORDERED: ondansetron 4mg rapidly disintigrating tab PO ONE
[2020-11-30 00:36] LABS: CLARITY,URINE CLOUDY (Clear); COLOR,URINE YELLOW (Yellow); GLUCOSE, URINE NEGATIVE (Neg); KETONES,URINE NEGATIVE (Neg); LEUKOCYTE ESTERASE ,URINE SMALL (Neg); NITRITES, URINE NEGATIVE (Neg); OCCULT BLOOD,URINE NEGATIVE (Neg); PH,URINE >=9.0 (4.8-8.0); PROTEIN,URINE TRACE mg/dl (Neg); URINE HCG NEGATIVE (NEG); UROBILINOGEN,URINE 0.2 E.U/dL (0.2-1.0)
[2020-11-30 00:38] LABS: UA COLLECTION TYPE CLN CATCH MIDSTREAM
[2020-11-30 00:51] VITALS: BP 132/91
[2020-11-30 00:52] LABS: RBC,URINE NONE SEEN /HPF (0-2)
[2020-11-30 00:53] LABS: BACTERIA,URINE 2+ /HPF (Neg); MUCUS STRANDS MODERATE /LPF (Neg); SQUAMOUS EPITHELIAL CELL,UR MANY /LPF (FEW)
--- NOTE | 2020-11-30 00:55 | NUR ---
Lab called and stated that urine was not clean so culture rejected. notified
== END 2020-11-30 00:53 | disposition home or self-care (01) ==
LOC: ER 22:33
DX: R11.2 Nausea with vomiting, unspecified (principal); R42 Dizziness and giddiness; R53.1 Weakness; M19.90 Unspecified osteoarthritis, unspecified site; I10 Essential (primary) hypertension; Z90.49 Acquired absence of other specified parts of digestive tract; Z90.710 Acquired absence of both cervix and uterus; Z98.890 Other specified postprocedural states; Z88.0 Allergy status to penicillin; Z88.1 Allergy status to other antibiotic agents; Z88.5 Allergy status to narcotic agent; Z79.899 Other long term (current) drug therapy
CPT/HCPCS: 36415; 80053; 81001; 81025; 82150; 83690; 85025; 99283

== ENCOUNTER 2021-03-06 22:57 | Emergency (ER) | payer BC ==
[~2021-03-06] VITALS: Ht 152.4 cm; Wt 75.4 kg
[2021-03-07] MEDS ORDERED: SULF1TAB49 PO (02:10)
[2021-03-07] MEDS ORDERED: bacitracin 15gm ointment TP ONE (02:15)
[2021-03-07 02:26] VITALS: BP 136/86
== END 2021-03-07 02:27 | disposition home or self-care (01) ==
LOC: ER 22:57
DX: L60.0 Ingrowing nail (principal); M79.675 Pain in left toe(s); I10 Essential (primary) hypertension; M19.90 Unspecified osteoarthritis, unspecified site; Z90.49 Acquired absence of other specified parts of digestive tract; Z90.710 Acquired absence of both cervix and uterus; Z98.890 Other specified postprocedural states; Z88.0 Allergy status to penicillin; Z88.1 Allergy status to other antibiotic agents; Z88.8 Allergy status to other drugs, medicaments and biological substances; Z79.2 Long term (current) use of antibiotics; Z79.899 Other long term (current) drug therapy
CPT/HCPCS: 64450; 99284

== ENCOUNTER → 2021-03-13 | Emergency (ER) | payer BC ==
[~2021-03-13] VITALS: Ht 152.4 cm; Wt 73.0 kg
[~2021-03-13] MED LIST changes: +DOXY100C2 PO; +DOXYCYCLINE 100MG CAPSULE PO STA; +LIDOcaine 1% W/epiNEPHrine 1:100,000 20ml vial ONE; +LIDOcaine 1% W/epiNEPHrine 1:200,000 10ml vial IJ ONE; +SULF1TAB49 PO; +bacitracin 15gm ointment TP ONE
[2021-03-14 01:04] VITALS: BP 138/90
== END | disposition home or self-care (01) ==
LOC: ER 22:52
DX: L60.0 Ingrowing nail (principal); I10 Essential (primary) hypertension; M19.90 Unspecified osteoarthritis, unspecified site; Z90.49 Acquired absence of other specified parts of digestive tract; Z90.710 Acquired absence of both cervix and uterus; Z98.890 Other specified postprocedural states; Z88.0 Allergy status to penicillin; Z88.1 Allergy status to other antibiotic agents; Z88.8 Allergy status to other drugs, medicaments and biological substances; Z79.2 Long term (current) use of antibiotics; Z79.899 Other long term (current) drug therapy
CPT/HCPCS: 11750; 99284

== ENCOUNTER 2021-06-06 05:51 | Emergency (ER) | payer BC ==
[~2021-06-06] VITALS: Ht 152.4 cm; Wt 77.3 kg
[~2021-06-06 05:51] MED LIST changes: -DOXY100C2 PO; -DOXYCYCLINE 100MG CAPSULE PO STA; -LIDOcaine 1% W/epiNEPHrine 1:100,000 20ml vial ONE; -LIDOcaine 1% W/epiNEPHrine 1:200,000 10ml vial IJ ONE; -SULF1TAB49 PO; -bacitracin 15gm ointment TP ONE
[2021-06-06] MEDS ORDERED: meclizine 12.5mg tablet PO ONE (06:55)
[2021-06-06] MEDS ORDERED: normal saline 1000ml 1,000 ML IV ONE (06:55)
[2021-06-06 09:58] VITALS: BP 138/85
== END 2021-06-06 10:00 | disposition home or self-care (01) ==
LOC: ER 05:52
DX: B34.9 Viral infection, unspecified (principal); R42 Dizziness and giddiness; R11.2 Nausea with vomiting, unspecified; I10 Essential (primary) hypertension; M19.90 Unspecified osteoarthritis, unspecified site; Z90.49 Acquired absence of other specified parts of digestive tract; Z90.710 Acquired absence of both cervix and uterus; Z98.890 Other specified postprocedural states; Z88.0 Allergy status to penicillin; Z88.1 Allergy status to other antibiotic agents; Z88.8 Allergy status to other drugs, medicaments and biological substances; Z79.899 Other long term (current) drug therapy
CPT/HCPCS: 93005; 96360; 99284; J7030; J8597

== ENCOUNTER 2021-11-20 12:31 | Outpatient (CLI) | payer BC ==
[2021-11-20 15:27] LABS: BASOPHILS % (AUTO) 0.2 % (0-1); EOSINOPHILS # (AUTO) 0.3 X10'3 (0-0.9); EOSINOPHILS % (AUTO) 2.7 % (0-6); HEMATOCRIT 36.8 % (35.0-45.0); HEMOGLOBIN 12.4 g/dl (12.0-16.0); LYMPHOCYTES # (AUTO) 2.7 X10'3 (1.1-4.8); LYMPHOCYTES % (AUTO) 28.4 % (21-51); MEAN CORPUSCULAR HEMOGLOBIN 30.2 PG (27.0-31.0); MEAN CORPUSCULAR HGB CONC 33.7 g/dL (33.0-36.5); MEAN CORPUSCULAR VOLUME 89.6 FL (78-98); MEAN PLATELET VOLUME 7.6 FL (7.4-10.4); MONOCYTES # (AUTO) 0.5 X10'3 (0-0.9); MONOCYTES % (AUTO) 5.7 % (2-12); NEUTROPHILS # (AUTO) 5.9 X10'3 (1.8-7.7); PLATELET COUNT 364 X10'3 (140-440); RED CELL DISTRIBUTION WIDTH 13.7 % (11.5-14.5); WHITE BLOOD COUNT 9.4 X10'3 (4.5-11.0)
[2021-11-20 16:12] LABS: ALANINE AMINOTRANSFERASE 27 U/L (12-78); ALBUMIN 3.5 G/DL (3.4-5.0); ANION GAP 14 (8-16); ASPARTATE AMINO TRANSFERASE 19 U/L (10-37); BILIRUBIN,TOTAL 0.2 MG/DL (0.1-1.0); BLOOD UREA NITROGEN 14 MG/DL (7-18); BUN/CREATININE RATIO 18.7 (6.6-38.0); CALCIUM 9.1 MG/DL (8.5-10.1); CHLORIDE 102 MMOL/L (99-107); CREATININE 0.75 MG/DL (0.40-0.90); GLUCOSE 158 MG/DL (70-104); POTASSIUM 3.8 MMOL/L (3.5-5.1); SODIUM 139 MMOL/L (135-145); TOTAL CARBON DIOXIDE 23.5 MMOL/L (24-32); TOTAL PROTEIN 6.9 G/DL (6.4-8.2); eGFR 83 ML/MIN
[2021-11-20 17:06] LABS: HEMOGLOBIN A1C 6.7 % (4.5-6.2)
[2021-11-21 09:24] LABS: CLARITY,URINE CLOUDY (Clear); COLOR,URINE YELLOW (Yellow); GLUCOSE, URINE NEGATIVE (Neg); KETONES,URINE NEGATIVE (Neg); LEUKOCYTE ESTERASE ,URINE SMALL (Neg); NITRITES, URINE NEGATIVE (Neg); OCCULT BLOOD,URINE NEGATIVE (Neg); PROTEIN,URINE NEGATIVE (Neg); UROBILINOGEN,URINE 0.2 E.U/dL (0.2-1.0)
[2021-11-21 09:30] LABS: UA COLLECTION TYPE CLN CATCH MIDSTREAM
[2021-11-21 09:38] LABS: BACTERIA,URINE 1+ /HPF (Neg); MUCUS STRANDS MODERATE /LPF (Neg); RBC,URINE NONE SEEN /HPF (0-2); SQUAMOUS EPITHELIAL CELL,UR MODERATE /LPF (FEW)
== END 2021-11-20 23:59 | disposition home or self-care (01) ==
LOC: LAB 12:31
PROVIDERS: ATTEND Nurse Practitioner
DX: I10 Essential (primary) hypertension (principal); F41.9 Anxiety disorder, unspecified; N20.0 Calculus of kidney; D17.1 Benign lipomatous neoplasm of skin and subcutaneous tissue of trunk; E87.6 Hypokalemia; K59.00 Constipation, unspecified; K52.9 Noninfective gastroenteritis and colitis, unspecified; E55.9 Vitamin D deficiency, unspecified; D50.9 Iron deficiency anemia, unspecified; R10.31 Right lower quadrant pain; Z86.32 Personal history of gestational diabetes
CPT/HCPCS: 36415; 80053; 81001; 82306; 82607; 82746; 83036; 84439; 84443; 85025; 87088; 87186

== ENCOUNTER 2021-11-21 08:46 | Outpatient (CLI) | payer BC | END 2021-11-21 23:59 | disposition home or self-care (01) | LOC: RAD 08:46 | PROVIDERS: ATTEND Nurse Practitioner | DX: K76.0 Fatty (change of) liver, not elsewhere classified (principal); I10 Essential (primary) hypertension; Z90.49 Acquired absence of other specified parts of digestive tract | CPT/HCPCS: 74176; 76700 ==

== ENCOUNTER 2022-03-22 12:22 | Outpatient (CLI) | payer BC ==
[2022-03-22 13:11] LABS: BASOPHILS # (AUTO) 0.1 X10'3 (0-0.2); EOSINOPHILS # (AUTO) 0.1 X10'3 (0-0.9); EOSINOPHILS % (AUTO) 1.8 % (0-6); HEMATOCRIT 37.3 % (35.0-45.0); HEMOGLOBIN 13.1 g/dl (12.0-16.0); LYMPHOCYTES # (AUTO) 1.7 X10'3 (1.1-4.8); LYMPHOCYTES % (AUTO) 34.2 % (21-51); MEAN CORPUSCULAR HEMOGLOBIN 29.9 PG (27.0-31.0); MEAN CORPUSCULAR HGB CONC 35.1 g/dL (33.0-36.5); MEAN CORPUSCULAR VOLUME 85.1 FL (78-98); MEAN PLATELET VOLUME 7.1 FL (7.4-10.4); MONOCYTES # (AUTO) 0.4 X10'3 (0-0.9); MONOCYTES % (AUTO) 6.9 % (2-12); NEUTROPHILS # (AUTO) 2.8 X10'3 (1.8-7.7); NEUTROPHILS % (AUTO) 56.1 % (42-75); PLATELET COUNT 202 X10'3 (140-440); RED BLOOD COUNT 4.38 X10'6 (4.20-5.60); RED CELL DISTRIBUTION WIDTH 13.9 % (11.5-14.5); WHITE BLOOD COUNT 5.1 X10'3 (4.5-11.0)
[2022-03-22 13:35] LABS: ALANINE AMINOTRANSFERASE 27 U/L (12-78); ALBUMIN 3.2 G/DL (3.4-5.0); ALBUMIN/GLOBULIN RATIO 0.9 (1.1-1.5); ALKALINE PHOSPHATASE 69 IU/L (46-116); AMYLASE 30 U/L (25-115); ANION GAP 8 (8-16); ASPARTATE AMINO TRANSFERASE 24 U/L (10-37); BILIRUBIN,TOTAL 0.5 MG/DL (0.1-1.0); BLOOD UREA NITROGEN 11 MG/DL (7-18); BUN/CREATININE RATIO 11.1 (6.6-38.0); CALCIUM 8.7 MG/DL (8.5-10.1); CHLORIDE 102 MMOL/L (99-107); CHOL/HDL RATIO 5.8 (0.00-4.99); CHOLESTEROL 138 MG/DL (0-200); CREATININE 0.99 MG/DL (0.40-0.90); GLUCOSE 112 MG/DL (70-104); HDL CHOLESTEROL 24 MG/DL (35-60); LDL CHOLESTEROL 65 MG/DL (50-100); LIPASE 56 U/L (73-393); SODIUM 139 MMOL/L (135-145); TOTAL CARBON DIOXIDE 28.9 MMOL/L (24-32); TOTAL PROTEIN 6.9 G/DL (6.4-8.2); TRIGLYCERIDES 301 MG/DL (20-135); eGFR 60 ML/MIN
[2022-03-22 13:53] LABS: POTASSIUM 2.7 MMOL/L (3.5-5.1)
[2022-03-22 13:57] LABS: CLARITY,URINE CLEAR (Clear); COLOR,URINE YELLOW (Yellow); GLUCOSE, URINE NEGATIVE (Neg); KETONES,URINE TRACE mg/dl (Neg); LEUKOCYTE ESTERASE ,URINE SMALL (Neg); NITRITES, URINE NEGATIVE (Neg); OCCULT BLOOD,URINE TRACE-INTACT (Neg); PROTEIN,URINE TRACE mg/dl (Neg); UROBILINOGEN,URINE 0.2 E.U/dL (0.2-1.0)
[2022-03-22 14:01] LABS: UA COLLECTION TYPE CLN CATCH MIDSTREAM
[2022-03-22 14:16] LABS: MUCUS STRANDS MODERATE /LPF (Neg); SQUAMOUS EPITHELIAL CELL,UR MANY /LPF (FEW)
[2022-03-22 14:19] LABS: BACTERIA,URINE 1+ /HPF (Neg)
[2022-03-22 14:43] LABS: FINE GRANULAR CAST 0-3 /LPF (NEGATIVE)
[2022-03-24 13:34] LABS: OCCULT BLOOD STOOL NEGATIVE (Neg)
== END 2022-03-22 23:59 | disposition home or self-care (01) ==
LOC: RAD 12:22
PROVIDERS: ATTEND Family Medicine
DX: R16.0 Hepatomegaly, not elsewhere classified (principal); R19.7 Diarrhea, unspecified; Z90.49 Acquired absence of other specified parts of digestive tract; Z90.710 Acquired absence of both cervix and uterus
CPT/HCPCS: 36415; 76700; 76856; 80053; 80061; 81001; 82043; 82150; 82272; 82570; 83690; 84550; 85025; 85651; 86140; 93976

== ENCOUNTER 2022-04-02 06:49 | Outpatient (CLI) | payer BC ==
[2022-04-02 10:33] LABS: ALANINE AMINOTRANSFERASE 32 U/L (12-78); ALBUMIN/GLOBULIN RATIO 0.9 (1.1-1.5); ALKALINE PHOSPHATASE 65 IU/L (46-116); ANION GAP 7 (8-16); ASPARTATE AMINO TRANSFERASE 29 U/L (10-37); BILIRUBIN,TOTAL 0.3 MG/DL (0.1-1.0); BLOOD UREA NITROGEN 7 MG/DL (7-18); BUN/CREATININE RATIO 8.4 (6.6-38.0); CALCIUM 8.4 MG/DL (8.5-10.1); CHLORIDE 104 MMOL/L (99-107); CREATININE 0.83 MG/DL (0.40-0.90); GLUCOSE 104 MG/DL (70-104); SODIUM 140 MMOL/L (135-145); TOTAL CARBON DIOXIDE 28.6 MMOL/L (24-32); TOTAL PROTEIN 6.5 G/DL (6.4-8.2); eGFR 74 ML/MIN
== END 2022-04-02 23:59 | disposition home or self-care (01) ==
LOC: LAB 06:49
PROVIDERS: ATTEND Family Medicine
DX: R53.82 Chronic fatigue, unspecified (principal); E78.00 Pure hypercholesterolemia, unspecified; I10 Essential (primary) hypertension
CPT/HCPCS: 36415; 80053

== ENCOUNTER 2022-04-24 10:21 | Outpatient (CLI) | payer BC ==
[2022-04-24] MEDS ORDERED: iohexol 300mg/ml 100ml inj. ONE (10:58)
== END 2022-04-24 23:59 | disposition home or self-care (01) ==
LOC: RAD 10:21
PROVIDERS: ATTEND Family Medicine
DX: K57.30 Diverticulosis of large intestine without perforation or abscess without bleeding (principal); D73.89 Other diseases of spleen; N83.292 Other ovarian cyst, left side; K40.90 Unilateral inguinal hernia, without obstruction or gangrene, not specified as recurrent; K42.9 Umbilical hernia without obstruction or gangrene; Z90.49 Acquired absence of other specified parts of digestive tract
CPT/HCPCS: 74177; J3490; Q9967

== ENCOUNTER 2022-06-01 06:47 | Outpatient (CLI) | payer BC ==
[2022-06-01 07:41] LABS: BASOPHILS % (AUTO) 0.6 % (0-1); EOSINOPHILS # (AUTO) 0.1 X10'3 (0-0.9); EOSINOPHILS % (AUTO) 1.9 % (0-6); HEMATOCRIT 38.9 % (35.0-45.0); HEMOGLOBIN 13.3 g/dl (12.0-16.0); LYMPHOCYTES # (AUTO) 3.2 X10'3 (1.1-4.8); LYMPHOCYTES % (AUTO) 47.6 % (21-51); MEAN CORPUSCULAR HEMOGLOBIN 29.7 PG (27.0-31.0); MEAN CORPUSCULAR HGB CONC 34.2 g/dL (33.0-36.5); MEAN CORPUSCULAR VOLUME 86.9 FL (78-98); MEAN PLATELET VOLUME 7.4 FL (7.4-10.4); MONOCYTES # (AUTO) 0.5 X10'3 (0-0.9); MONOCYTES % (AUTO) 7.4 % (2-12); NEUTROPHILS # (AUTO) 2.8 X10'3 (1.8-7.7); NEUTROPHILS % (AUTO) 42.5 % (42-75); PLATELET COUNT 291 X10'3 (140-440); RED BLOOD COUNT 4.47 X10'6 (4.20-5.60); RED CELL DISTRIBUTION WIDTH 14.2 % (11.5-14.5); WHITE BLOOD COUNT 6.6 X10'3 (4.5-11.0)
[2022-06-01 07:55] LABS: ALANINE AMINOTRANSFERASE 32 U/L (12-78); ALBUMIN 3.7 G/DL (3.4-5.0); ALBUMIN/GLOBULIN RATIO 1.1 (1.1-1.5); ALKALINE PHOSPHATASE 69 IU/L (46-116); ANION GAP 12 (8-16); ASPARTATE AMINO TRANSFERASE 21 U/L (10-37); BILIRUBIN,TOTAL 0.3 MG/DL (0.1-1.0); BLOOD UREA NITROGEN 8 MG/DL (7-18); BUN/CREATININE RATIO 9.8 (6.6-38.0); CALCIUM 8.7 MG/DL (8.5-10.1); CHLORIDE 105 MMOL/L (99-107); CHOL/HDL RATIO 3.8 (0.00-4.99); CHOLESTEROL 155 MG/DL (0-200); CREATININE 0.82 MG/DL (0.40-0.90); GLUCOSE 104 MG/DL (70-104); HDL CHOLESTEROL 41 MG/DL (35-60); LDL CHOLESTEROL 74 MG/DL (50-100); POTASSIUM 3.1 MMOL/L (3.5-5.1); SODIUM 145 MMOL/L (135-145); TOTAL PROTEIN 7.1 G/DL (6.4-8.2); TRIGLYCERIDES 255 MG/DL (20-135); eGFR 75 ML/MIN
[2022-06-01 07:58] LABS: HEMOGLOBIN A1C 6.2 % (4.5-6.2)
[2022-06-01 09:32] LABS: CLARITY,URINE CLOUDY (Clear); COLOR,URINE YELLOW (Yellow); GLUCOSE, URINE NEGATIVE (Neg); KETONES,URINE NEGATIVE (Neg); LEUKOCYTE ESTERASE ,URINE NEGATIVE (Neg); NITRITES, URINE NEGATIVE (Neg); OCCULT BLOOD,URINE NEGATIVE (Neg); PH,URINE 5.5 (4.8-8.0); PROTEIN,URINE NEGATIVE (Neg); UROBILINOGEN,URINE 0.2 E.U/dL (0.2-1.0)
[2022-06-01 09:52] LABS: UA COLLECTION TYPE VOIDED
[2022-06-01 10:11] LABS: BACTERIA,URINE 1+ /HPF (Neg); MUCUS STRANDS FEW /LPF (Neg); RBC,URINE NONE SEEN /HPF (0-2); SQUAMOUS EPITHELIAL CELL,UR MODERATE /LPF (FEW); WBC,URINE 0-4 /HPF (0-4)
== END 2022-06-01 23:59 | disposition home or self-care (01) ==
LOC: LAB 06:47
PROVIDERS: ATTEND Internal Medicine
DX: J30.9 Allergic rhinitis, unspecified (principal); R73.01 Impaired fasting glucose; E78.00 Pure hypercholesterolemia, unspecified; R63.5 Abnormal weight gain; R53.82 Chronic fatigue, unspecified; R21 Rash and other nonspecific skin eruption; L70.0 Acne vulgaris; K43.9 Ventral hernia without obstruction or gangrene; R52 Pain, unspecified; I10 Essential (primary) hypertension
CPT/HCPCS: 36415; 80053; 80061; 81001; 82607; 82746; 83036; 84439; 84443; 85025

== ENCOUNTER → 2022-11-08 | Outpatient (CLI) | payer BC ==
[2022-11-08 07:18] LABS: BASOPHILS % (AUTO) 0.4 % (0-1); EOSINOPHILS # (AUTO) 0.1 X10'3 (0-0.9); EOSINOPHILS % (AUTO) 1.6 % (0-6); HEMATOCRIT 39.9 % (35.0-45.0); HEMOGLOBIN 13.4 g/dl (12.0-16.0); LYMPHOCYTES # (AUTO) 3.6 X10'3 (1.1-4.8); LYMPHOCYTES % (AUTO) 42.7 % (21-51); MEAN CORPUSCULAR HEMOGLOBIN 30.4 PG (27.0-31.0); MEAN CORPUSCULAR HGB CONC 33.6 g/dL (33.0-36.5); MEAN CORPUSCULAR VOLUME 90.5 FL (78-98); MEAN PLATELET VOLUME 7.5 FL (7.4-10.4); MONOCYTES # (AUTO) 0.5 X10'3 (0-0.9); MONOCYTES % (AUTO) 6.1 % (2-12); NEUTROPHILS # (AUTO) 4.1 X10'3 (1.8-7.7); NEUTROPHILS % (AUTO) 49.2 % (42-75); PLATELET COUNT 352 X10'3 (140-440); RED BLOOD COUNT 4.41 X10'6 (4.20-5.60); WHITE BLOOD COUNT 8.4 X10'3 (4.5-11.0)
[2022-11-08 07:24] LABS: ALANINE AMINOTRANSFERASE 26 U/L (12-78); ALBUMIN 3.8 G/DL (3.4-5.0); ALKALINE PHOSPHATASE 67 IU/L (46-116); ANION GAP 3 (8-16); ASPARTATE AMINO TRANSFERASE 27 U/L (10-37); BILIRUBIN,TOTAL 0.5 MG/DL (0.1-1.0); BLOOD UREA NITROGEN 10 MG/DL (7-18); BUN/CREATININE RATIO 13.7 (6.6-38.0); CALCIUM 9.1 MG/DL (8.5-10.1); CHLORIDE 103 MMOL/L (99-107); CHOL/HDL RATIO 2.8 (0.00-4.99); CHOLESTEROL 160 MG/DL (0-200); CREATININE 0.73 MG/DL (0.40-0.90); GLUCOSE 107 MG/DL (70-104); HDL CHOLESTEROL 57 MG/DL (35-60); LDL CHOLESTEROL 83 MG/DL (50-100); POTASSIUM 3.6 MMOL/L (3.5-5.1); SODIUM 136 MMOL/L (135-145); TOTAL CARBON DIOXIDE 30.2 MMOL/L (24-32); TOTAL PROTEIN 7.6 G/DL (6.4-8.2); TRIGLYCERIDES 176 MG/DL (20-135); eGFR 85 ML/MIN
[2022-11-08 07:49] LABS: HEMOGLOBIN A1C 5.8 % (4.5-6.2)
== END | disposition home or self-care (01) ==
LOC: LAB 04:51
PROVIDERS: ATTEND Internal Medicine
DX: E87.6 Hypokalemia (principal); K58.0 Irritable bowel syndrome with diarrhea; R63.5 Abnormal weight gain; R53.82 Chronic fatigue, unspecified; K43.9 Ventral hernia without obstruction or gangrene; I10 Essential (primary) hypertension; E78.2 Mixed hyperlipidemia; J30.2 Other seasonal allergic rhinitis; R73.01 Impaired fasting glucose
CPT/HCPCS: 36415; 80053; 80061; 83036; 85025

== ENCOUNTER 2023-02-06 11:02 | Emergency (ER) | payer BC ==
[~2023-02-06] VITALS: Ht 152.4 cm; Wt 77.4 kg
[2023-02-06] MEDS ORDERED: ipratropium/albuterol 3ml nebule NEB ONE (11:25)
[2023-02-06 12:22] VITALS: BP 130/88
[2023-02-06] MEDS ORDERED: PRED20TA PO (12:38)
[2023-02-06] MEDS ORDERED: BENZ-38 PO (12:38)
[2023-02-06] MEDS ORDERED: ALBU6.7H14 INH (12:38)
== END 2023-02-06 12:57 | disposition home or self-care (01) ==
LOC: ER 11:02
DX: J45.20 Mild intermittent asthma, uncomplicated (principal); J45.909 Unspecified asthma, uncomplicated; I10 Essential (primary) hypertension; Z90.49 Acquired absence of other specified parts of digestive tract; Z88.0 Allergy status to penicillin; Z88.1 Allergy status to other antibiotic agents; Z88.8 Allergy status to other drugs, medicaments and biological substances; Z79.899 Other long term (current) drug therapy
CPT/HCPCS: 71046; 94640; 94760; 99283

== ENCOUNTER 2023-05-20 07:47 | Emergency (ER) | payer BC ==
[~2023-05-20] VITALS: Ht 152.4 cm; Wt 76.0 kg
[~2023-05-20 07:47] MED LIST changes: +ALBU6.7H14 INH
[2023-05-20 07:51] VITALS: BP 156/94; PULSE 63; RESP 12; TEMP 97.6; O2SAT 98
[2023-05-20] MEDS ORDERED: clindamycin 150mg capsule PO ONE (08:30)
[2023-05-20] MEDS ORDERED: CLIN-142 PO (08:30)
[2023-05-20] MEDS ORDERED: TETanus/Pertussis (Acell)/Diphther VAC/PF (Tdap-Adult) 0.5ml syringe IMVAC ONE (08:30)
== END 2023-05-20 09:46 | disposition home or self-care (01) ==
LOC: ER 07:48
DX: S61.011A Laceration without foreign body of right thumb without damage to nail, initial encounter (principal); I10 Essential (primary) hypertension; M19.90 Unspecified osteoarthritis, unspecified site; Z90.49 Acquired absence of other specified parts of digestive tract; Z90.710 Acquired absence of both cervix and uterus; Z88.0 Allergy status to penicillin; Z88.1 Allergy status to other antibiotic agents; Z88.2 Allergy status to sulfonamides; Z79.899 Other long term (current) drug therapy; Z23 Encounter for immunization; W54.0XXA Bitten by dog, initial encounter; Y93.89 Activity, other specified; Y92.89 Other specified places as the place of occurrence of the external cause; Y99.8 Other external cause status
CPT/HCPCS: 90471; 90715; 99283

== ENCOUNTER 2023-06-19 10:58 | Outpatient (CLI) | payer BC ==
[2023-06-19 14:14] LABS: ALANINE AMINOTRANSFERASE 31 U/L (12-78); ALBUMIN 3.8 G/DL (3.4-5.0); ALKALINE PHOSPHATASE 80 IU/L (46-116); ANION GAP 7 (8-16); ASPARTATE AMINO TRANSFERASE 19 U/L (10-37); BILIRUBIN,TOTAL 0.3 MG/DL (0.1-1.0); BLOOD UREA NITROGEN 4 MG/DL (7-18); C-REACTIVE PROTEIN 2.03 MG/DL (0.0-0.5); CALCIUM 9.5 MG/DL (8.5-10.1); CHLORIDE 100 MMOL/L (99-107); CHOL/HDL RATIO 3.2 (0.00-4.99); CHOLESTEROL 150 MG/DL (0-200); FREE T4 (FREE THYROXINE) 0.94 NG/DL (0.73-1.40); GLUCOSE 85 MG/DL (70-104); HDL CHOLESTEROL 47 MG/DL (35-60); LDL CHOLESTEROL 75 MG/DL (50-100); SODIUM 138 MMOL/L (135-145); THYROID STIMULATING HORMONE 1.53 ulU/ml (0.34-4.50); TOTAL CARBON DIOXIDE 31.1 MMOL/L (24-32); TOTAL PROTEIN 7.8 G/DL (6.4-8.2); TRIGLYCERIDES 157 MG/DL (20-135)
[2023-06-19 14:16] LABS: BUN/CREATININE RATIO 5.3 (10.0-20.0); CREATININE 0.75 MG/DL (0.40-0.90); eGFR 82 ML/MIN
[2023-06-19 14:28] LABS: BASOPHILS # (AUTO) 0.1 X10'3 (0-0.2); BASOPHILS % (AUTO) 0.6 % (0-1); EOSINOPHILS # (AUTO) 0.3 X10'3 (0-0.9); EOSINOPHILS % (AUTO) 3.1 % (0-6); HEMATOCRIT 39.9 % (35.0-45.0); HEMOGLOBIN 13.8 g/dl (12.0-16.0); LYMPHOCYTES # (AUTO) 4.3 X10'3 (1.1-4.8); LYMPHOCYTES % (AUTO) 47.8 % (21-51); MEAN CORPUSCULAR HEMOGLOBIN 30.9 PG (27.0-31.0); MEAN CORPUSCULAR HGB CONC 34.4 g/dL (33.0-36.5); MEAN CORPUSCULAR VOLUME 89.8 FL (78-98); MEAN PLATELET VOLUME 7.6 FL (7.4-10.4); MONOCYTES # (AUTO) 0.8 X10'3 (0-0.9); NEUTROPHILS # (AUTO) 3.6 X10'3 (1.8-7.7); NEUTROPHILS % (AUTO) 39.5 % (42-75); PLATELET COUNT 346 X10'3 (140-440); RED BLOOD COUNT 4.45 X10'6 (4.20-5.60); RED CELL DISTRIBUTION WIDTH 13.7 % (11.5-14.5)
[2023-06-19 14:32] LABS: RHEUM FACTOR QUAL REFLEX TITER NEGATIVE (Neg)
[2023-06-19 14:42] LABS: CLARITY,URINE SLIGHTLY CLOUDY (Clear); COLOR,URINE YELLOW (Yellow); GLUCOSE, URINE NEGATIVE (Neg); PROTEIN,URINE NEGATIVE (Neg); UA COLLECTION TYPE CLN CATCH MIDSTREAM
[2023-06-19 14:43] LABS: BILIRUBIN,URINE NEGATIVE (Neg); KETONES,URINE NEGATIVE (Neg); LEUKOCYTE ESTERASE ,URINE NEGATIVE (Neg); NITRITES, URINE NEGATIVE (Neg); OCCULT BLOOD,URINE NEGATIVE (Neg); UROBILINOGEN,URINE 0.2 E.U/dL (0.2-1.0)
[2023-06-19 14:44] LABS: BACTERIA,URINE 2+ /HPF (Neg); RBC,URINE NONE SEEN /HPF (0-2); SQUAMOUS EPITHELIAL CELL,UR MANY /LPF (FEW); WBC,URINE 0-4 /HPF (0-4)
[2023-06-19 14:54] LABS: POTASSIUM 2.9 MMOL/L (3.5-5.1)
== END 2023-06-19 23:59 | disposition home or self-care (01) ==
LOC: LAB 10:58
PROVIDERS: ATTEND Physician Assistant
DX: R73.01 Impaired fasting glucose (principal); R53.83 Other fatigue; R52 Pain, unspecified; E78.00 Pure hypercholesterolemia, unspecified; R63.5 Abnormal weight gain
CPT/HCPCS: 36415; 80053; 80061; 81001; 84155; 84165; 84439; 84443; 85025; 85651; 86038; 86060; 86140; 86430